=== PATIENT | male | born 1985 | race African-American/Black ===

== ENCOUNTER 2021-09-19 10:16 | Emergency (ER) | payer SELFPAY ==
[~2021-09-19] VITALS: Ht 172.7 cm; Wt 187.7 kg
[2021-09-19 10:33] VITALS: BP 132/95
[2021-09-19] MEDS ORDERED: ALBUTEROL 90 MCG/ACT 8GM HFA INHALER INH ONE (10:45)
[2021-09-19] MEDS ORDERED: PRED20TA PO (10:48)
== END 2021-09-19 11:23 | disposition home or self-care (01) ==
LOC: M ED 10:16 → EDBD 10:16 → M ED 11:23
DX: J45.901 Unspecified asthma with (acute) exacerbation (principal); G47.33 Obstructive sleep apnea (adult) (pediatric); Z86.16 Personal history of COVID-19

== ENCOUNTER 2021-10-16 11:51 | Emergency (ER) | payer SELFPAY ==
[~2021-10-16] VITALS: Ht 172.7 cm; Wt 196.0 kg
[~2021-10-16 11:51] MED LIST: PRED20TA PO
[2021-10-16] MEDS ORDERED: PROAAER10 INH (11:59)
[2021-10-16] MEDS ORDERED: NS 1,000 ML IV ONE (16:40)
[2021-10-16 17:18] LABS: BASO # 0.1 10^3/uL (0.0-0.2); BASO % 0.8 % (0.0-1.0); EOS # 0.3 10^3/uL (0.0-0.5); EOS % 3.5 % (0.0-3.0); HEMATOCRIT 48.6 % (42.0-52.0); HEMOGLOBIN 16.2 g/dl (13.5-17.5); LYMPH # 3.4 10^3/uL (1.5-5.0); LYMPH % 40.2 % (24.0-44.0); MEAN CORPUSCULAR HEMOGLOBIN 29.5 pg (27.0-33.0); MEAN CORPUSCULAR HGB CONC 33.3 g/dl (32.0-36.5); MEAN CORPUSCULAR VOLUME 88.4 fl (80.0-96.0); MONO # 0.7 10^3/uL (0.0-0.8); MONO % 7.7 % (2.0-8.0); NEUTROPHILS # 4.1 10^3/uL (1.5-8.5); NEUTROPHILS % 47.6 % (36.0-66.0); PLATELET COUNT, AUTOMATED 429 10^3/uL (150-450); WHITE BLOOD COUNT 8.6 10^3/uL (4.0-10.0)
[2021-10-16] MEDS ORDERED: ISOVUE-370 76% 100ML VIAL As Ordered ONE (17:24)
[2021-10-16 17:48] LABS: MONO SCRN NEGATIVE (NEGATIVE)
[2021-10-16] MEDS ORDERED: dexameTHASONE 20MG/5ML VIAL (J1100 PER 1MG) IV ONE (18:20)
[2021-10-16] MEDS ORDERED: AUGMENTIN 875 MG TAB PO ONE (18:20)
[2021-10-16] MEDS ORDERED: AUGM875T28 PO (18:22)
[2021-10-16] MEDS ORDERED: VENTAER INH (18:33)
[2021-10-16 19:00] VITALS: BP 138/91
== END 2021-10-16 19:00 | disposition home or self-care (01) ==
LOC: M ED 11:51
DX: J35.1 Hypertrophy of tonsils (principal); Z91.013 Allergy to seafood
CPT/HCPCS: 36415; 70491; 80047; 85025; 86308; 87880; 96361; 96374; 99284; J1100; Q9967

== ENCOUNTER → 2022-05-16 | Outpatient (CLI) | payer OTHER, SELFPAY ==
[~2022-05-16] MED LIST changes: +AUGM875T28 PO; +PROAAER10 INH; +VENTAER INH
== END ==
LOC: M SOG 08:12
PROVIDERS: ATTEND Orthopaedic Surgery Adult Reconstructive Orthopaedic Surgery
DX: Z53.9 Procedure and treatment not carried out, unspecified reason (principal)

== ENCOUNTER 2022-08-08 11:32 | Emergency (ER) | payer OTHER ==
[~2022-08-08] VITALS: Ht 172.7 cm; Wt 208.8 kg
[2022-08-08] MEDS ORDERED: methylPREDNISolone 125MG 2ML VIAL IM ONE (13:45)
[2022-08-08] MEDS ORDERED: PRED20TA PO (14:47)
[2022-08-08] MEDS ORDERED: AMOX875T2 PO (14:47)
[2022-08-08 15:05] VITALS: BP 142/76
== END 2022-08-08 15:10 | disposition home or self-care (01) ==
LOC: M ED 11:32
DX: J45.901 Unspecified asthma with (acute) exacerbation (principal); J02.0 Streptococcal pharyngitis; F12.10 Cannabis abuse, uncomplicated; Z91.013 Allergy to seafood
CPT/HCPCS: 71046; 87486; 87581; 87633; 87798; 87880; 96372; 99283; J2930

== ENCOUNTER → 2022-08-18 | Outpatient (CLI) | payer OTHER ==
[~2022-08-18] MED LIST changes: +AMOX875T2 PO
[2022-08-18 13:04] LABS: BASO # 0.1 10^3/uL (0.0-0.2); BASO % 0.5 % (0.0-1.0); EOS # 0.1 10^3/uL (0.0-0.5); EOS % 0.9 % (0.0-3.0); HEMATOCRIT 49.9 % (42.0-52.0); HEMOGLOBIN 15.7 g/dl (13.5-17.5); LYMPH # 4.8 10^3/uL (1.5-5.0); LYMPH % 37.3 % (24.0-44.0); MEAN CORPUSCULAR HEMOGLOBIN 28.8 pg (27.0-33.0); MEAN CORPUSCULAR HGB CONC 31.5 g/dl (32.0-36.5); MEAN CORPUSCULAR VOLUME 91.4 fl (80.0-96.0); MONO # 0.9 10^3/uL (0.0-0.8); MONO % 7.2 % (2.0-8.0); NEUTROPHILS # 6.9 10^3/uL (1.5-8.5); NEUTROPHILS % 53.5 % (36.0-66.0); PLATELET COUNT, AUTOMATED 388 10^3/uL (150-450); RED BLOOD COUNT 5.46 10^6/uL (4.30-6.10); WHITE BLOOD COUNT 12.8 10^3/uL (4.0-10.0)
[2022-08-18 13:42] LABS: ALBUMIN 3.1 GM/DL (3.2-5.2); ALT/SGPT 36 U/L (12-78); BILIRUBIN,TOTAL 0.4 MG/DL (0.2-1.0); BLOOD UREA NITROGEN 14 MG/DL (7-18); CALCIUM LEVEL 9.2 MG/DL (8.5-10.1); CARBON DIOXIDE LEVEL 28 MEQ/L (21-32); CHLORIDE LEVEL 103 MEQ/L (98-107); CHOLESTEROL LEVEL 210 MG/DL (<200); CHOLESTEROL RISK RATIO 3.962 (<5); CREATININE FOR GFR 0.92 MG/DL (0.70-1.30); GLOMERULAR FILTRATION RATE > 60.0 (>60); GLUCOSE, FASTING 81 MG/DL (70-100); HDL CHOLESTEROL 53 MG/DL (>40); LDL CHOLESTEROL 111 MG/DL (<100); NON-HDL-C 157 MG/DL; POTASSIUM SERUM 4.7 MEQ/L (3.5-5.1); SODIUM LEVEL 139 MEQ/L (136-145); TOTAL PROTEIN 7.5 GM/DL (6.4-8.2); TRIGLYCERIDES LEVEL 232 MG/DL (<150)
[2022-08-18 14:21] LABS: TOTAL 25(OH) VITAMIN D 13.6 NG/ML (30.0-100.0)
[2022-08-18 15:00] LABS: HEPATITIS C VIRUS ABY INDEX 0.2 INDEX (<0.8)
[2022-08-18 15:01] LABS: HIV 1&2 SCREEN CENTAUR NEGATIVE (NEGATIVE)
== END ==
LOC: M RAD 11:40
PROVIDERS: ATTEND Nurse Practitioner Family
DX: Z13.228 Encounter for screening for other metabolic disorders (principal); M94.0 Chondrocostal junction syndrome [Tietze]; R91.8 Other nonspecific abnormal finding of lung field

== ENCOUNTER → 2022-09-08 | Outpatient (CLI) | payer OTHER | LOC: M RAD 09:26 | PROVIDERS: ATTEND Nurse Practitioner Family | DX: M54.50 Low back pain, unspecified (principal); M25.561 Pain in right knee ==

== ENCOUNTER 2022-11-26 15:32 | Emergency (ER) | payer OTHER ==
[~2022-11-26] VITALS: Ht 172.7 cm; Wt 204.4 kg
[2022-11-26] MEDS ORDERED: ALBU8.5H (15:39)
[2022-11-26] MEDS ORDERED: METF500T13 (15:39)
[2022-11-26] MEDS ORDERED: IPRATROPIUM 0.5MG/ALBUTEROL 2.5MG INH SOL UD 3ML (DUONEB) NEB PRN (16:20)
[2022-11-26] MEDS ORDERED: methylPREDNISolone 125MG 2ML VIAL IV ONE (16:20)
[2022-11-26 17:06] LABS: BASO # 0.1 10^3/uL (0.0-0.2); BASO % 0.9 % (0.0-1.0); EOS # 0.5 10^3/uL (0.0-0.5); EOS % 7.2 % (0.0-3.0); HEMATOCRIT 48.4 % (42.0-52.0); HEMOGLOBIN 15.7 g/dl (13.5-17.5); LYMPH # 1.9 10^3/uL (1.5-5.0); LYMPH % 28.8 % (24.0-44.0); MEAN CORPUSCULAR HEMOGLOBIN 29.1 pg (27.0-33.0); MEAN CORPUSCULAR HGB CONC 32.4 g/dl (32.0-36.5); MEAN CORPUSCULAR VOLUME 89.6 fl (80.0-96.0); MONO # 0.9 10^3/uL (0.0-0.8); MONO % 13.9 % (2.0-8.0); NEUTROPHILS # 3.1 10^3/uL (1.5-8.5); NEUTROPHILS % 48.7 % (36.0-66.0); PLATELET COUNT, AUTOMATED 379 10^3/uL (150-450); WHITE BLOOD COUNT 6.4 10^3/uL (4.0-10.0)
[2022-11-26 17:33] LABS: ALBUMIN 3.2 G/DL (3.2-5.2); ALKALINE PHOSPHATASE 83 U/L (46-116); ALT/SGPT 31 U/L (7.0-40); AST/SGOT 32 U/L (<34); BILIRUBIN,DIRECT 0.2 MG/DL (<0.4); BILIRUBIN,TOTAL 0.2 MG/DL (0.3-1.2); BLOOD UREA NITROGEN 9 MG/DL (9-23); CALCIUM LEVEL 9.1 MG/DL (8.5-10.1); CARBON DIOXIDE LEVEL 29 MMOL/L (20-31); CHLORIDE LEVEL 103 MMOL/L (98-107); CREATININE FOR GFR 0.88 MG/DL (0.70-1.30); GLOMERULAR FILTRATION RATE > 60.0 (>60); GLUCOSE, FASTING 90 MG/DL (60-100); POTASSIUM SERUM 5.3 MMOL/L (3.5-5.1); SODIUM LEVEL 139 MMOL/L (136-145); TOTAL PROTEIN 7.5 G/DL (5.7-8.2)
[2022-11-26] MEDS ORDERED: PRED20TA PO (18:37)
[2022-11-26] MEDS ORDERED: VENTAER INH (18:37)
[2022-11-26] MEDS ORDERED: BENZ200C70 PO (18:37)
[2022-11-26 18:51] VITALS: BP 180/89
== END 2022-11-26 18:56 | disposition home or self-care (01) ==
LOC: M ED 15:32
DX: J20.9 Acute bronchitis, unspecified (principal); J45.901 Unspecified asthma with (acute) exacerbation; E11.9 Type 2 diabetes mellitus without complications; G47.33 Obstructive sleep apnea (adult) (pediatric); F12.10 Cannabis abuse, uncomplicated; Z91.013 Allergy to seafood; Z79.52 Long term (current) use of systemic steroids; Z79.4 Long term (current) use of insulin; Z79.899 Other long term (current) drug therapy
CPT/HCPCS: 71045; 80048; 80076; 83880; 85025; 87486; 87581; 87633; 87798; 87880; 94640; 96374; 99284; J2930

== ENCOUNTER 2024-01-28 12:06 | Emergency (ER) | payer OTHER ==
[~2024-01-28] VITALS: Ht 172.7 cm; Wt 205.1 kg
[~2024-01-28 12:06] MED LIST changes: +ALBU8.5H; +BENZ200C70 PO; +METF500T13
[2024-01-28 12:07] VITALS: BP 137/77; TEMP 98.2; O2SAT 94
[2024-01-28] MEDS ORDERED: FLUT1INH2 (12:22)
[2024-01-28] MEDS ORDERED: ERGO500029 (12:22)
[2024-01-28] MEDS ORDERED: ROSU20TA61 (12:22)
[2024-01-28] MEDS ORDERED: VENTAER INH (12:57)
== END 2024-01-28 13:42 | disposition home or self-care (01) ==
LOC: M ED 12:06
DX: J45.909 Unspecified asthma, uncomplicated (principal); E11.9 Type 2 diabetes mellitus without complications; Z91.013 Allergy to seafood; Z79.51 Long term (current) use of inhaled steroids; Z79.84 Long term (current) use of oral hypoglycemic drugs; Z79.899 Other long term (current) drug therapy

== ENCOUNTER → 2024-03-27 | Outpatient (CLI) | payer OTHER ==
[~2024-03-27] MED LIST changes: +ERGO500029; +FLUT1INH2; +ROSU20TA61
== END ==
LOC: M SLEEP 20:00
PROVIDERS: ATTEND Nurse Practitioner Adult Health
DX: G47.33 Obstructive sleep apnea (adult) (pediatric) (principal)

== ENCOUNTER → 2024-07-25 | Outpatient (CLI) | payer MEDICAID, OTHER ==
[~2024-07-25] MED LIST changes: -ROSU20TA61; +ROSU20TA86
== END ==
LOC: M PLAIMG 08:37
PROVIDERS: ATTEND Internal Medicine Cardiovascular Disease
DX: R06.02 Shortness of breath (principal); R94.31 Abnormal electrocardiogram [ECG] [EKG]; R60.0 Localized edema

== ENCOUNTER → 2024-08-29 | Outpatient (CLI) | payer OTHER | LOC: M CARPUL 10:30 | PROVIDERS: ATTEND Internal Medicine Cardiovascular Disease | DX: R07.9 Chest pain, unspecified (principal); R06.02 Shortness of breath ==

== ENCOUNTER 2024-12-21 22:32 | Emergency (ER) | payer OTHER ==
[~2024-12-21] VITALS: Ht 172.7 cm; Wt 212.3 kg
[2024-12-21] MEDS ORDERED: IBUP200C29 PO (22:45)
[2024-12-22 00:27] LABS: BASO % 0.3 % (0.0-1.0); EOS # 0.2 10^3/uL (0.0-0.5); EOS % 1.7 % (0.0-3.0); HEMATOCRIT 46.1 % (42.0-52.0); HEMOGLOBIN 15.3 g/dl (13.5-17.5); LYMPH # 1.4 10^3/uL (1.5-5.0); LYMPH % 13.1 % (24.0-44.0); MEAN CORPUSCULAR HEMOGLOBIN 28.6 pg (27.0-33.0); MEAN CORPUSCULAR HGB CONC 33.2 g/dl (32.0-36.5); MEAN CORPUSCULAR VOLUME 86.2 fl (80.0-96.0); MONO # 0.6 10^3/uL (0.0-0.8); MONO % 5.6 % (2.0-8.0); NEUTROPHILS # 8.1 10^3/uL (1.5-8.5); PLATELET COUNT, AUTOMATED 405 10^3/uL (150-450); RED BLOOD COUNT 5.35 10^6/uL (4.30-6.10); WHITE BLOOD COUNT 10.3 10^3/uL (4.0-10.0)
[2024-12-22] MEDS: ACETAMINOPHEN *IV* 1,000 MG in IV 1 EA IV ONE (00:50)
[2024-12-22] MEDS: NS (Normal Saline) 0.9% 1,000 ML IV ONE (00:50)
[2024-12-22] MEDS: LR 1,000 ML IV ONE (00:51)
[2024-12-22 02:07] LABS: LIPASE 20 U/L (12-53)
[2024-12-22 02:09] LABS: ALBUMIN 2.8 G/DL (3.2-5.2); ALKALINE PHOSPHATASE 83 U/L (40-129); ALT/SGPT 16 U/L (7.0-40); AST/SGOT 15 U/L (<34); BILIRUBIN,DIRECT 0.1 MG/DL (<0.4); BILIRUBIN,TOTAL 0.4 MG/DL (0.3-1.2); BLOOD UREA NITROGEN 10 MG/DL (9-23); CALCIUM LEVEL 8.1 MG/DL (8.5-10.1); CARBON DIOXIDE LEVEL 25 MMOL/L (20-31); CHLORIDE LEVEL 104 MMOL/L (98-107); CREATININE FOR GFR 0.71 MG/DL (0.70-1.30); GLOMERULAR FILTRATION RATE > 60.0 (>60); GLUCOSE, FASTING 114 MG/DL (60-100); POTASSIUM SERUM 3.9 MMOL/L (3.5-5.1); SODIUM LEVEL 137 MMOL/L (136-145); TOTAL PROTEIN 7.1 G/DL (5.7-8.2)
[2024-12-22] MEDS ORDERED: ISOVUE-370 76% 100ML VIAL As Ordered ONE (02:34)
[2024-12-22] MEDS: LR 1,000 ML IV SCH (02:40)
[2024-12-22] MEDS: LORazepam 2 MG/ML 1ML VIAL IV ONE (02:40)
[2024-12-22 05:37] LABS: PROCALCITONIN 0.12 ng/ml
[2024-12-22 06:20] VITALS: BP 122/79; TEMP 97.8; O2SAT 95
== END 2024-12-22 06:20 | disposition home or self-care (01) ==
LOC: M ED 22:32
DX: K52.9 Noninfective gastroenteritis and colitis, unspecified (principal); F17.200 Nicotine dependence, unspecified, uncomplicated; F12.10 Cannabis abuse, uncomplicated; Z91.013 Allergy to seafood; Z79.52 Long term (current) use of systemic steroids; Z79.899 Other long term (current) drug therapy
CPT/HCPCS: 36415; 74177; 80048; 80076; 83605; 83690; 84145; 85025; 87040; 87486; 87581; 87633; 87798; 93041; 96361; 96365; 96366; 96375; 99285; J0131; J2060; Q9967

== ENCOUNTER → 2025-02-12 | Outpatient (REF) | payer OTHER ==
[~2025-02-12] MED LIST changes: +IBUP200C29 PO
[2025-02-13 12:46] LABS: Trichomonas vaginalis (AMP) POSITIVE (NEGATIVE)
[2025-02-13 13:22] LABS: GC DNA AMPLIFICATION NEGATIVE (NEGATIVE)
== END ==
LOC: M LAB REF 11:34
PROVIDERS: ATTEND Physician Assistant
DX: Z20.2 Contact with and (suspected) exposure to infections with a predominantly sexual mode of transmission (principal)

== ENCOUNTER 2025-05-13 22:50 | Emergency (ER) | payer OTHER ==
[~2025-05-13] VITALS: Ht 172.7 cm; Wt 216.6 kg
[~2025-05-13 22:50] MED LIST changes: +SYMB80INH INH
[2025-05-13 22:53] VITALS: BP 143/86; TEMP 97.7; O2SAT 98
[2025-05-14] MEDS ORDERED: MAGICMW SSP (02:20)
[2025-05-14] MEDS: LIDOCAINE VISCOUS 2% SOLN 15 ML UDC PO ONE (02:41)
== END 2025-05-14 02:51 | disposition home or self-care (01) ==
LOC: M ED 22:50
DX: J02.9 Acute pharyngitis, unspecified (principal); F12.10 Cannabis abuse, uncomplicated; J45.909 Unspecified asthma, uncomplicated; G47.33 Obstructive sleep apnea (adult) (pediatric); Z79.52 Long term (current) use of systemic steroids; Z79.899 Other long term (current) drug therapy; Z91.013 Allergy to seafood
CPT/HCPCS: 87880; 96372; 99283; J1100

== ENCOUNTER → 2025-07-01 | Outpatient (REF) | payer OTHER ==
[~2025-07-01] MED LIST changes: +MAGICMW SSP
[2025-07-01 15:01] LABS: ALT/SGPT 20 U/L (7.0-40); AST/SGOT 22 U/L (<34); CALCIUM LEVEL 9.2 MG/DL (8.5-10.1); CARBON DIOXIDE LEVEL 25 MMOL/L (20-31); CHLORIDE LEVEL 104 MMOL/L (98-107); CHOLESTEROL LEVEL 169 MG/DL (<200); CHOLESTEROL RISK RATIO 4.80 (<5); CREATININE FOR GFR 0.67 MG/DL (0.70-1.30); GLOMERULAR FILTRATION RATE > 90.0 (>60); LDL CHOLESTEROL 71.4 MG/DL (<100); NON-HDL-C 133.8 MG/DL; POTASSIUM SERUM 4.1 MMOL/L (3.5-5.1); SODIUM LEVEL 139 MMOL/L (136-145); TRIGLYCERIDES LEVEL 312 MG/DL (<150)
[2025-07-01 15:07] LABS: VITAMIN B12 LEVEL 414 PG/ML (211-911)
[2025-07-01 15:08] LABS: TOTAL 25(OH) VITAMIN D 10.7 NG/ML (20.0-100.0)
[2025-07-01 19:46] LABS: ESTIMATED AVERAGE GLUCOSE 146.0 MG/DL (60-110)
== END ==
LOC: M LAB REF 12:37
PROVIDERS: ATTEND Physician Assistant
DX: E66.01 Morbid (severe) obesity due to excess calories (principal); E55.9 Vitamin D deficiency, unspecified; E78.2 Mixed hyperlipidemia

== ENCOUNTER 2025-08-02 07:07 | Emergency (ER) | payer OTHER ==
[~2025-08-02] VITALS: Ht 172.7 cm; Wt 217.1 kg
[2025-08-02 07:20] VITALS: BP 126/73; TEMP 97.5; O2SAT 96
== END 2025-08-02 11:15 | disposition left against medical advice (07) ==
LOC: M ED 07:07
DX: Z53.21 Procedure and treatment not carried out due to patient leaving prior to being seen by health care provider (principal)